=== PATIENT | female | born 1980 | race Caucasian/White ===

== ENCOUNTER → 2023-04-29 18:29 | Outpatient (CLI) | payer MEDICAID, SELFPAY ==
--- NOTE | 2023-04-29 18:30 | DI.RAD_ITS ---
Exam(s) XR SHOULDER LT COMPLETE 2+V EXAM: XR SHOULDER LT COMPLETE 2+V CLINICAL HISTORY: evaluate pathology. TECHNIQUE: 2D digital imaging was performed of the left shoulder. Four images were obtained. AP, G rashey, Y-view and axillary views were obtained. COMPARISON: No exams were available for comparison FINDINGS: BONES: No acute fracture is present. No bony destructive lesion is seen. JOINTS: No dislocation present. There are mild degenerative changes seen at the acromioclavicular santos nt. The glenohumeral joint is unremarkable. SOFT TISSUE: The visualized lungs are clear. IMPRESSION: Mild degenerative changes of the AC joint. DATA REPOSITORY: RADIATION DOSE DELIVERED:
--- NOTE | 2023-04-29 19:03 | DI.VRAD_ITS ---
PROCEDURE INFORMATION: Exam: XR Left Shoulder Exam date and time: 04/29/2023 6:46 PM Age: 43 years old Clinical indication: Injury or trauma; Fall; Blunt trauma (contusions or hematomas); Shoulder; Left; Injury details: Inj a while ago, eval pathology TECHNIQUE: Imaging protocol: Radiologic exam of the left shoulder. Views: 2 or more views. COMPARISON: No relevant prior studies available. FINDINGS: Bones/joints: Degenerative changes at the acromioclavicular joint. No acute fracture or dislocation Soft tissues: Normal. IMPRESSION: No acute findings. Dictated and Authenticated by: Rohit Puente MD. Ordering:JEFFERSON Busby MD
== END ==
PROVIDERS: Visit Provider Nurse Practitioner Family
DX: M19.012 Primary osteoarthritis, left shoulder (principal)
CPT/HCPCS: 73030

== ENCOUNTER → 2023-05-15 02:02 | Outpatient (CLI) | payer MEDICAID, SELFPAY ==
--- NOTE | 2023-05-15 09:45 | DI.MRI_ITS ---
Exam(s) MR UPPER JOINT LT WO EXAM: MR UPPER JOINT LT WO CLINICAL HISTORY: ? SLAP TEAR,slap lesion,s43.432a,m75.02,adhesive capsulitis TECHNIQUE: Multiplanar multisequence MRI of the shoulder was performed. COMPARISON: CR,XR XR SHOULDER LT COMPLETE 2+V from 04/29/2023 FINDINGS: MARROW:There is no evidence of fracture, Hill-Sachs deformity, nor bony Bankart lesion. There is a b enign-appearing bone lesion in the humeral head measuring 1.2 x 1.2 by 1.0 cm without surrounding bon e edema. Probable enchondroma. There are a few small degenerative subarticular cysts in the greater tuberosity subjacent to the infraspinatus tendon insertion site. GLENOHUMERAL JOINT: No joint effusion nor obvious loose intra-articular bodies. No chondral defects. No osteophytes. No degenerative subarticular cysts. No evidence of capsular tear. The inferior gle nohumeral ligament is intact. ROTATOR CUFF MECHANISM: AC JOINT/ACROMIUM: Mild degenerative changes in the AC joint.. There is no evidence of os acromiale. Supraspinatus: Intact. No evidence of tear nor muscle atrophy. Infraspinatus: Intact. No evidence of tear nor muscle atrophy. Teres Minor: Intact. No evidence of tear nor muscle atrophy. Subscapularis/anterior cuff: Intact. No abnormal signal at the level of the multipennate insertional fibers. No significant tear nor atrophy. BICEPS TENDON: Exhibits normal position within the intertubercular groove. No evidence of tear. No tenosynovitis. LABRUM: There is no abnormal signal in the superior labrum at the level of the biceps tendon insertio n. More posteriorly there is subtle thinning in the posterior aspect of the superior labrum which ma y indicate very subtle SLAP tear. The posterior labrum also appears intact. Anterior labrum appears intact. Inferior labrum appears i ntact. No evidence of paralabral cyst. QUADRILATERAL SPACE: No evidence of mass in the region of the axillary nerve and dorsal circumflex hu meral vessels. Visualized triceps muscle at this level appears unremarkable. IMPRESSION: 1. No evidence of rotator cuff tears nor obvious tendinitis of the rotator cuff mechanism. No muscle atrophy. 2. Biceps tendon appears unremarkable. No tear nor tenosynovitis. 3. Very subtle irregularity of the superior labrum posterior to the biceps insertion site. This may represent a very subtle SLAP tear. The remainder of the labrum appears intact. There is no evidence of paralabral cyst. 4. There is a benign-appearing lobulated nonexpansile bone lesion in the humeral head measuring 12 x 10 x 12 mm, most probably a benign enchondroma. There is no surrounding bone edema to suggest that this is an aggressive lesion. 5. There are no obvious degenerative changes in the glenohumeral joint and no joint effusion or loos e intra-articular bodies evident. DATA REPOSITORY:
== END ==
PROVIDERS: Visit Provider Student in an Organized Health Care Education/Training Program
DX: S43.432A Superior glenoid labrum lesion of left shoulder, initial encounter (principal); X58.XXXA Exposure to other specified factors, initial encounter
CPT/HCPCS: 73221

== ENCOUNTER 2023-05-28 06:07 | Day surgery (SDC) | payer MEDICAID, SELFPAY ==
[2023-05-28] VITALS (7 sets, daily range): BP systolic 116–147; BP diastolic 88–101; PULSE 64–78; RESP 15–19; TEMP 36.6–36.7; O2SAT 99–100; BMI 22.5
[2023-05-28] MEDS: Lactated Ringers 1,000 ML 30 ML IV (06:35)
--- NOTE | 2023-05-28 07:04 | W.ANESPRE ---
General Info Date of Service Date Performed: 05/28/23 Height: 5 ft 6 in Weight: 63.3 kg Body Mass Index (BMI): 22.5 Surgical Procedure: Operation Date: 05/28/23 07:40 Proposed Procedure Side Surgeon p Shoulder Manipulation Left Harvey Stevenson MD Meds Allergies and Home Medications Allergies Allergy/AdvReac Type Severity Reaction Status Date / Time aspirin AdvReac Intermediate Other (See Verified 05/28/23 06:19 Comment) Home Medication Medication Instructions Recorded norethindrone 1 mg-ethinyl 1 tab PO DAILY 05/06/23 estradiol 20 mcg (21)-iron 75 mg (7) tablet (04/25 (28)) Current Visit Medications: Current Medications Generic Name Dose Route Start Last Admin Trade Name Freq PRN Reason Stop Dose Admin Ringer's Solution 1,000 mls @ 30 mls/hr 05/28/23 06:00 05/28/23 06:35 IV 05/28/23 23:59 30 mls/hr INFUSION ELSIE Administration IV Miscellaneous Supplies 1 each 05/28/23 06:00 Iv Access IV 05/28/23 23:59 DIRECTED ELSIE Sodium Chloride 0 ml 05/28/23 06:00 Normal Saline Flush 10 Ml Syr IV 05/28/23 23:59 PRN PRN Sodium Chloride 0 ml 05/28/23 06:00 Normal Saline 10 Ml Vial IJ 05/28/23 23:59 DIRECTED PRN Sterile Water 0 ml 05/28/23 06:00 Water,Injection,Sterile 10 Ml Vial IJ 05/28/23 23:59 DIRECTED PRN PFSH Active Problems Active Problems: Problem Status Onset Code SLAP lesion of left shoulder S43.432A Adhesive capsulitis of left shoulder M75.02 Surgical History Surgical History [place] teeth removed Tobacco Smoking/Tobacco Use Status: Current every day Tobacco Type: cigarettes Alcohol Alcohol Intake: current Alcohol intake frequency: a few times a week Substance Use Substance use: Never Substance use type: does not use Vital Signs and Lab Results Vital Signs Most Recent Vital Signs in EMR: Most Recent Vital Signs Temp Pulse Resp BP Pulse Ox 36.7 C 74 16 116/88 99 05/28/23 06:21 05/28/23 06:21 05/28/23 06:21 05/28/23 06:21 05/28/23 06:21 Point of Care Results Point of Care Results: POC- Test(urine) Negative 05/28/23 06:37 Lab Results Blood Type / Crossmatch: No Data to Display Complete Blood Count: No Data to Display Complete Metabolic Panel: No Data to Display Liver Function Panel: No Data to Display Coagulation Panel: No Data to Display Cardiac Panel: No Data to Display Arterial Blood Gas: No Data to Display Venous Blood Gas: No Data to Display Pancreas Panel: No Data to Display Thyroid Panel: No Data to Display Infectious Disease: No Data to Display Blood Cultures: No Data to Display Toxicology Panel: No Data to Display Panel: No Data to Display Anesthesia Assessment and Plan Anesthesia History Personal History: No History of Anesthesia Complications Family History: No Family History of Anesthesia Complications Exercise Tolerance Exercise Tolerance: Metabolic Equivalents>4 Pertinent Negatives Pertinent Negatives: No Symptoms of GERD, No Major Cardiovascular Symptoms or Complaints and No Major Pulmonary Symptoms or Complaints Cardiac & Pulmonary Exam Cardiac Exam: Normal S1/S2 Heart Sounds Pulmonary Exam: Clear Bilateral Breath Sounds Implantable Cardiac Device Does patient have a Pacemaker or an ICD?: No Airway Exam Known Difficult Airway: No Mallampati Class: 2 Mouth Opening: Narrow (< 3cm) Thyromental Distance: Greater than 3 cm Neck Range of Motion: Full ROM Neck Circumference: Normal Teeth Condition: Removable Dentures/Plates Upper ASA Classification ASA Score: ASA 2 Emergency Case?: No NPO Status NPO Status: NPO Clears >2 hours, Solids >8 hours Status Status: Negative HCG Anesthesia Plan Resuscitation Status: Full Code Anesthesia Technique: General Anesthesia Airway Planned: Natural Airway Pain Management: Surgeon and patient request nerve block Monitors Used: Standard Monitors
--- NOTE | 2023-05-28 07:08 | W.PM.DSUDISC ---
Date of service: 05/28/23 Time of Service: 12:30 Discharge Plan Disposition Patient Disposition: Home Condition: Stable Discharge Details Attending Provider: Harvey Stevenson Primary Care Provider: Unknown,Unknown Home Meds and New Rx's Prescriptions: New naproxen 250 mg tablet 250 - 500 mg PO BID PRN (Reason: Moderate pain) Qty: 40 0RF oxycodone 5 mg tablet 5 - 10 mg PO Q4H PRN (Reason: Moderate to severe pain) Qty: 12 0RF Continued norethindrone-e.estradiol-iron [04/25 (28)] 1 mg-20 mcg (21)/75 mg (7) tablet 1 tab PO DAILY Discharge Instructions Additional Instructions: Surgery: Left shoulder manipulation under anesthesia Activity: Encourage increasing left shoulder range of motion. Perform daily stretching exercises. Resume physical therapy tomorrow. Prescriptions: Naproxen 250 mg take 1-2 every 12 hours with a meal as needed for moderate pain Oxycodone 5 mg take 1-2 every 4-6 hours as needed for severe pain You may use ydur-ikq-tqkckwi Tylenol (acetaminophen) as needed for mild pain. These pain medications may be taken all at once or in different combinations as needed. Also, recommend Colace (docusate) as a stool softener as surgery and pain medicine cause constipation. You may try kxxl-zco-wfrxxaw diphenhydramine (Benadryl) 25-50 mg nightly as a sleep aid Dressings: None Follow-up: 10-[address] Stevenson You may take off the leg compression stockings this evening at home. You may also leave them on a few days longer if you have a history of leg swelling or edema. Let us know right away if you develop any redness, drainage, fevers, chest pain, or trouble breathing. Do not drink alcohol or drive for at least 24 hours after anesthesia. Please call the office during business hours with any questions or concerns. Discharge Orders Discharge Orders: Discharge Order (Routine); Ordered 05/28/23 Ordered By: Ricky Ordoñez DS: Diagnosis Discharge Diagnosis (1) Adhesive capsulitis of left shoulder: Status: Acute
--- NOTE | 2023-05-28 07:19 | ROE_ITS ---
Date of service: 05/28/23 Time of Service: 07:30 Operative Note Operative Note DATE OF PROCEDURE: 05/28/23 PRE-OP DIAGNOSIS: Left shoulder stiffness PROCEDURE: Left shoulder manipulation under anesthesia, CPT #34020 SURGEON: Harvey Stevenson ANESTHESIA TYPE: General LMA/ETT and Primary Nerve Block Refer to Anesthesia Record ESTIMATED BLOOD LOSS: 0 COMPLICATIONS: None Patient was transported to: same day Patient's condition: stable Indications: Please see complete medical record for details. Findings: Nearly full range of motion once relaxed under anesthesia, minor releases at terminal points of motion. No instability or mechanical symptoms. Procedure Description: The patient was examined prior to nerve block anesthesia, demonstrated known limitation to about 90 degrees forward elevation, unable to encourage greater forward elevation with active assistance or passive motion. External rotation remained around the last visit about 45-50 degrees. In the operating room, general anesthesia was induced. The patient was positioned supine on the stretcher. Preoperative antibiotics were omitted. The correct patient, procedure, and side of the procedure were all verified prior to beginning. The Left shoulder was examined with range of motion already significantly improved to 145 degrees forward elevation, 60 external rotation, and 50 degrees internal rotation. These already good range of motion endpoints had a soft field. Gentle steady pressure using a short lever arm was used to readily achieve full symmetrical range of motion with minor releases at terminal forward elevation, external rotation, abduction external rotation, internal rotation, and cross body adduction. No significant capsular releases were appreciated. Range of motion was then tested and full and symmetrical past 145 degrees forward elevation, 75 degrees external rotation, and 65 degrees internal rot ation. All endpoints were gently exaggerated. The shoulder joint remained stable without mechanical sensations. While the patient remained under anesthesia, all directions were stretched and repeated numerous times. The patient awoke from anesthesia without complication and was transferred to the recovery room in a stable condition.
--- NOTE | 2023-05-28 07:49 | W.ANESNERVE ---
Nerve Block Single Injection Procedure Date and Time Date Performed: 05/28/23 Procedure Start: 07:15 Location Where Procedure Performed Procedure Location: Day Surgery Unit Reason Performed: Postoperative Analgesia Requesting Provider: Harvey Stevenson Timeout Performed Timeout Performed: Yes Monitoring Used ECG, Blood Pressure, SpO2 and See EMR for corresponding vital signs Sterility Sterility: Hand Hygiene, Surgical Cap, Surgical Mask, Sterile Gloves and Chlorhexidine Sedation Given During Procedure Sedation Given (Indicate Dose Given): Versed IV Dose:: 2mg Patient Mental Status Patient Mental Status: Awake Nerve Block 1st Nerve Block: Laterality: Left Block Type: Supraclavicular Ultrasound Image Saved?: Yes Needle / Catheter Used: 100mm SonoPlex II Local Anesthetic Bolus (Indicate Dose Given): Lidocaine used for local infiltration of skin, Injected in 3-5ml increments after negative blood aspiration, Bupivacaine 0.5% Dose:: 10ml and Exparel Dose:: 10ml Additives (Indicate Dose Given): None Ultrasound: Sterile probe cover and gel used Nerve Stimulator: Supplement to Ultrasound use and No twitch or parasthesia noted < 0.5 mA Paresthesia: None Procedure Tolerated: No Complications and Patient tolerated well Procedure Outcome: Successful Performed By: Johnnie Schneider
--- NOTE | 2023-05-28 07:57 | W.ANESPOSTOP ---
Postoperative Evaluation Date, Time and Location Date Performed: 05/28/23 Time Performed: 07:57 Patient Location: Day Surgery Unit Vital Signs Most Recent Imported Vital Signs: Most Recent Vital Signs Temp Pulse Resp BP Pulse Ox 36.7 C 78 16 126/92 H 99 05/28/23 07:45 05/28/23 07:45 05/28/23 07:45 05/28/23 07:45 05/28/23 07:45 Pain Score Most Recent Pain Score: Most Recent Pain Score Pain Level 0 05/28/23 07:45 Assessment Mental Status: Awake (Alert & Oriented to Patient Baseline) Airway and Respiratory Function: Patent airway with normal (patient baseline) respiratory exam Cardiovascular Function: Hemodynamically Stable Hydration Status: Adequately Hydrated Nausea & Vomiting: No Nausea or Vomiting Pain: Pt. Denies Any Pain Peripheral Nerve Block: Regional nerve block not resolved at time of post operative discharge
== END 2023-05-28 08:29 | disposition home or self-care (01) ==
PROVIDERS: Visit Provider Student in an Organized Health Care Education/Training Program
PROC: (CPT 23700; principal; 2023-05-28 07:30)
DX: M75.02 Adhesive capsulitis of left shoulder (principal)
CPT/HCPCS: 23700; 76942; 81025; C9290; J0665; J2001; J2250; J2405; J2704

== ENCOUNTER 2023-08-28 08:43 | Day surgery (SDC) | payer MEDICAID, SELFPAY ==
[2023-08-28] VITALS (12 sets, daily range): BP systolic 94–163; BP diastolic 57–98; PULSE 60–80; RESP 13–19; TEMP 36.4–36.8; O2SAT 97–100; BMI 23.8
--- NOTE | 2023-08-28 07:12 | W.PM.DSUDISC ---
Date of service: 08/28/23 Time of Service: 14:00 Discharge Plan Disposition Patient Disposition: Home Condition: Stable Discharge Details Attending Provider: Harvey Stevenson Primary Care Provider: None,None Home Meds and New Rx's Prescriptions: New naproxen 250 mg tablet 250 - 500 mg PO BID PRNQty: 40 0RF Rx Instructions: take with a meal Continued norethindrone-e.estradiol-iron [04/25 (28)] 1 mg-20 mcg (21)/75 mg (7) tablet 1 tab PO DAILY Discharge Instructions Additional Instructions: Surgery: Left shoulder arthroscopy with extensive debridement, subacromial decompression, and mini open biceps tenodesis. Activity: You should gradually increase range of motion motion and use of your shoulder. You may use your shoulder for all regular activities while protecting biceps repair. Avoid any weighted elbow flexion or resisted supination for 6-8 weeks. No heavy lifting, reaching overhead, or lifting away from body for approximately 2-3 months. You may use the sling whenever you are out of the house for a few weeks. At home it is best to remove the sling and rest the arm on a pillow at your side or support the operative side with your other hand. A physical therapy prescription will be sent electronically to start in about 2-3 weeks. Prescriptions: Naproxen 250 mg take 1-2 every 12 hours with a meal as needed for moderate pain You may use zxtz-tej-ikcveor Tylenol (acetaminophen) as needed for mild pain. These pain medications may be taken all at once or in different combinations as needed. Also, recommend Colace (docusate) as a stool softener as surgery and pain medicine cause constipation. You may try cyrk-bva-ehlfajh diphenhydramine (Benadryl) 25-50 mg nightly as a sleep aid Dressings: Remove shoulder bandage after 3 days. Leave the sticky Steri-Strips in place until they fall off or remove them after you shower. Cover the incisions with Band-Aids or leave them open to air. The biceps bandage (inside upper arm) is glued on separately. You may leave this one on a few days longer if it is difficult to remove. There is also glue underneath this bandage that can be left in place until it peels off. You may shower after 5 days. Follow-up: 10-[address] Stevenson You may take off the leg compression stockings this evening at home. You may also leave them on a few days longer if you have a history of leg swelling or edema. Let us know right away if you develop any redness, drainage, fevers, chest pain, or trouble breathing. Do not drink alcohol or drive for at least 24 hours after anesthesia. Please call the office during business hours with any questions or concerns. Stand Alone Forms: Anesthesia Discharge InstPete Rome.Nerve Block Instructions, Enzo Pelaez (DSU) Discharge Orders Discharge Orders: Discharge Order (Routine); Ordered 08/28/23 Ordered By: Alexandra Vargas Discharge Data Discharge Date/Time-TO BE ENTERED AT DEPARTURE: 08/28/23 14:21 DS: Diagnosis Discharge Diagnosis (1) Tendinitis of long head of biceps brachii of left shoulder: Status: Acute (2) Bursitis of left shoulder: Status: Acute
--- NOTE | 2023-08-28 07:33 | W.PM.OP ---
Date of service: 08/28/23 Time of Service: 11:00 Operative Note Operative Note DATE OF PROCEDURE: 08/28/23 PRE-OP DIAGNOSIS: Left: 1. SLAP tear 2. Adhesive capsulitis 3. Bursitis POST-OP DIAGNOSIS: same Left: 1. Biceps tendinopathy 2. Bursitis PROCEDURE: Left: 1. Open biceps tenodesis, CPT# 80173. This involved reattaching the long head of the biceps tendon to the proximal humerus in the sub-pectoral area of the bicipital groove at the correct tension. 2. Arthroscopic extensive debridement, CPT# 71716. This involved using arthroscopic hand instruments, power instruments, and radiofrequency instruments to release the long head of the biceps tendon and debride areas of mild anterior labral fraying, rotator interval synovitis, and release anterior capsule/[facility] L working within the glenohumeral joint. 3. Arthroscopy subacromial decompression with partial acromioplasty, CPT# 50044. This involved using arthroscopic power instruments and a radiofrequency wand to complete a bursectomy and smooth the undersurface of the acromion. The transportation assistant was medically required in order to help assist in techniques above, which require positioning the arm, holding the arthroscope, and manipulating multiple instruments and sutures at the same time. This cannot be done without the help of an experienced transportation assistant. SURGEON: Harvey Stevenson CARDIOLOGY TECHNICIAN: Alexandra Vargas ANESTHESIA TYPE: Local By Surgeon, General LMA/ETT and Primary Nerve Block Refer to Anesthesia Record ESTIMATED BLOOD LOSS: 5 PATHOLOGY: none sent COMPLICATIONS: None Patient was transported to: PACU Patient's condition: stable Implants: Arthrex: Unicortical Proximal Biceps Tenodesis Button Indications: The patient was diagnosed with the above conditions and appropriately indicated for surgical intervention. Please see complete medical record for details. Findings: Exam under anesthesia: Full range of motion without any mechanical symptoms or instability Glenohumeral joint: Moderate biceps injection, structurally intact, no visible SLAP tear, mild rotator interval synovitis, small bulbous area subscapularis without any apparent injury or tearing. Moderately thickened [facility] L. Mild central glenoid chondromalacia. Intact rotator cuff. Subacromial space: Moderate bursitis, minimal bursal rotator cuff fraying, no tearing. No significant acromial bone spur or impingement. Procedure Description: In the operating room, general anesthesia was induced. Bilateral shoulders were examined. The patient was positioned in the beachchair position. All bony prominences were well-padded. Preoperative antibiotics were administered. The shoulder was prepped and draped in the usual sterile fashion. The correct patient, procedure, and side of the procedure were all verified prior to incision. Starting through the posterior portal a standard complete diagnostic arthroscopy was performed of the glenohumeral joint including inspection of the long head of the biceps, anterior and superior labrum, subscapularis tendon, supraspinatus and infraspinatus tendons, and axillary recess. The glenoid and humeral head cartilage as well as the posterior labrum were inspected from an anterior viewing portal. Significant findings and interventions noted above. Of note, the [facility] L was released with arthroscopic scissors given the history of frozen shoulder/stiffness and some thickening noted. The anterior labrum was lightly debrided of fraying as well as the rotator interval of synovitis. The biceps tendon was released from the superior labrum using arthroscopic scissors. Starting through the posterior portal, the arthroscope was directed into the subacromial space. A lateral 50 yard line lateral portal was created. A combination of power instruments and a radiofrequency ablator were used to debride bursitis anteriorly, posteriorly, and laterally as well as expose and smooth bone spurring on the undersurface of the acromion. The coracoacromial ligament was partially released. The bursectomy was completed viewing laterally and working from posteriorly and the rotator cuff was thoroughly inspected with findings noted above. The shoulder was drained of arthroscopic fluid. 10 cc of 0.25% bupivacaine with epinephrine was infiltrated about a 3 cm longitudinal incision at the inferior margin of the pectoralis major localized over the long head of the biceps tendon. Blunt and sharp dissection were used to expose the tendon in the bicipital groove. The tendon was brought out of the wound and kept off the skin on top of a blue towel. The correct location for sub-pectoral fixation was localized, prepped with a rasp, and then drilled with a 3.2 mm drill pin in a unicortical fashion. Using a fiber loop suture the tendon was prepped from the musculotendinous junction a few centimeters proximal. The excess tendon was amputated. The free suture ends were then passed through the unicortical button implant. The drill pin was removed and the implant was placed into the humeral intramedullary canal. The button was flipped and the sutures were tensioned bringing the tendon down to bone. Tension and fixation were then tested and found to be appropriate. The free ends of the suture were were tied compressing tendon to bone. The wound was copiously irrigated with normal saline. Subcutaneous tissue was closed using 3-0 Monocryl in a buried interrupted fashion. Skin was closed using 3-0 Monocryl in a buried subcuticular running fashion. Skin glue was applied over the incision. Mastisol was applied about the incision. The incision was covered with Telfa, gauze, and covered with a Tegaderm dressing. All portal sites were copiously irrigated. These incisions were closed using 3-0 Monocryl in a buried fashion and then covered with Mastisol, Steri-Strips, Xeroform, dry gauze, and ABDs. The dressings were covered and secured with Medipore tape. The operative extremity was placed into a sling for immobilization. The patient awoke from anesthesia without complication and was transferred to the recovery room in a stable condition.
--- NOTE | 2023-08-28 07:52 | ANES.PREOP_ITS ---
General Info Date of Service Date Performed: 08/28/23 Height: 5 ft 6 in Weight: 67.132 kg Body Mass Index (BMI): 23.8 Surgical Procedure: Operation Date: 08/28/23 10:40 Proposed Procedure Side Surgeon p Shoulder Arthroscopy w/Extensive Debridement, Open VS Arthroscopic Biceps Tenodesis, Subacromial Decompression Left Harvey Stevenson MD Pre-Op Diagnosis Post-Op Diagnosis (1) SLAP lesion of left shoulder (2) Adhesive capsulitis of left shoulder Meds Allergies and Home Medications Allergies Allergy/AdvReac Type Severity Reaction Status Date / Time aspirin AdvReac Intermediate Other (See Verified 08/28/23 08:51 Comment) Home Medication Medication Instructions Recorded norethindrone 1 mg-ethinyl 1 tab PO DAILY 05/06/23 estradiol 20 mcg (21)-iron 75 mg (7) tablet (04/25 (28)) Current Visit Medications: Current Medications Generic Name Dose Route Start Last Admin Trade Name Freq PRN Reason Stop Dose Admin Ringer's Solution 1,000 mls @ 30 mls/hr 08/28/23 06:00 IV 08/28/23 23:59 INFUSION ELSIE Cefazolin Sodium/Dextrose 2 gm in 50 mls @ 100 mls/hr 08/28/23 06:00 Ancef Duplex IVPB 08/28/23 23:59 PREOP ELSIE Tranexamic Acid/Sodium Chloride 1,000 mg in 100 mls @ 600 mls/hr 08/28/23 06:00 IVPB 08/28/23 23:59 PREOP ELSIE IV Miscellaneous Supplies 1 each 08/28/23 06:00 Iv Access IV 08/28/23 23:59 DIRECTED ELSIE Oxycodone HCl 0 mg 08/28/23 07:12 Oxycodone 5 Mg Tab PO 09/27/23 07:11 Q3H PRN PRN Pain Sodium Chloride 0 ml 08/28/23 06:00 Normal Saline Flush 10 Ml Syr IV 08/28/23 23:59 PRN PRN Sodium Chloride 0 ml 08/28/23 06:00 Normal Saline 10 Ml Vial IJ 08/28/23 23:59 DIRECTED PRN Sterile Water 0 ml 08/28/23 06:00 Water,Injection,Sterile 10 Ml Vial IJ 08/28/23 23:59 DIRECTED PRN PFSH Active Problems Active Problems: Problem Status Onset Code SLAP lesion of left shoulder S43.432A Adhesive capsulitis of left shoulder M75.02 Surgical History Surgical History [place] teeth removed Tobacco Smoking/Tobacco Use Status: Current every day Tobacco Type: cigarettes Alcohol Alcohol Intake: current Alcohol intake frequency: a few times a week Substance Use Substance use: Never Substance use type: does not use Vital Signs and Lab Results Vital Signs Most Recent Vital Signs in EMR: Temp Pulse Resp BP Pulse Ox 36.8 C 80 16 137/89 99 08/28/23 08:56 08/28/23 08:56 08/28/23 08:56 08/28/23 08:56 08/28/23 08:56 Lab Results Blood Type / Crossmatch: No Data to Display Complete Blood Count: No Data to Display Complete Metabolic Panel: No Data to Display Liver Function Panel: No Data to Display Coagulation Panel: No Data to Display Cardiac Panel: No Data to Display Arterial Blood Gas: No Data to Display Venous Blood Gas: No Data to Display Pancreas Panel: No Data to Display Thyroid Panel: No Data to Display Infectious Disease: No Data to Display Blood Cultures: No Data to Display Toxicology Panel: No Data to Display Panel: No Data to Display Anesthesia Assessment and Plan Anesthesia History Personal History: No History of Anesthesia Complications Family History: No Family History of Anesthesia Complications Exercise Tolerance Exercise Tolerance: Metabolic Equivalents>4 Cardiac & Pulmonary Exam Cardiac Exam: Normal S1/S2 Heart Sounds Pulmonary Exam: Clear Bilateral Breath Sounds Implantable Cardiac Device Does patient have a Pacemaker or an ICD?: No Airway Exam Known Difficult Airway: No Mallampati Class: 2 Mouth Opening: Narrow (< 3cm) Thyromental Distance: Greater than 3 cm Neck Range of Motion: Full ROM Neck Circumference: Normal Teeth Condition: Removable Dentures/Plates Upper (very secure would like to leave it in. Understands the risk of breaking. ) ASA Classification ASA Score: ASA 2 Emergency Case?: No NPO Status NPO Status: NPO Clears >2 hours, Solids >8 hours Status Status: Negative HCG Anesthesia Plan Resuscitation Status: Full Code Anesthesia Technique: General Anesthesia Airway Planned: Endotracheal Tube Pain Management: Surgeon and patient request nerve block Monitors Used: Standard Monitors Preoperative Comments:: 43 yo female for shoulder scope. Sig PMHx: smoker, occ Etoh. Previous Anes: - shoulder manipulation, prop, zofran, no issues. ISB, midaz 2, 10 mL 0.5% bupiv, 10 mL exparel - lasted for ~48.
[2023-08-28] MEDS: Lactated Ringers 1,000 ML 30 ML IV (09:18)
--- NOTE | 2023-08-28 10:11 | W.ANESNERVE ---
Nerve Block Single Injection Procedure Date and Time Date Performed: 08/28/23 Procedure Start: 10:19 Location Where Procedure Performed Procedure Location: Day Surgery Unit Reason Performed: Postoperative Analgesia Requesting Provider: Harvey Stevenson Timeout Performed Timeout Performed: Yes Monitoring Used ECG, Blood Pressure and SpO2 Sterility Sterility: Hand Hygiene, Surgical Cap, Surgical Mask, Sterile Gloves and Chlorhexidine Sedation Given During Procedure Sedation Given (Indicate Dose Given): Versed IV Dose:: 2 mg Patient Mental Status Patient Mental Status: Sedate with meaningful communication Nerve Block 1st Nerve Block: Laterality: Left Block Type: Interscalene Ultrasound Image Saved?: Yes Needle / Catheter Used: 80mm SonoPlex II Local Anesthetic Bolus (Indicate Dose Given): Lidocaine used for local infiltration of skin, Bupivacaine 0.5% Dose:: 10 mL and Exparel Dose:: 10 mL Additives (Indicate Dose Given): None Ultrasound: Sterile probe cover and gel used Nerve Stimulator: Supplement to Ultrasound use and No twitch or parasthesia noted < 0.5 mA Paresthesia: None Procedure Tolerated: No Complications Procedure Outcome: Successful Performed By: Arturo Frey
[2023-08-28] MEDS: ceFAZolin 2 GM/50 ML BAG IVPB (10:45)
[2023-08-28] MEDS: TRANEXAMIC ACID/SOD. CHL. 1,000 MG/100 ML BAG 600 MG IVPB (10:51)
[2023-08-28] MEDS: Bupivacaine 0.25% Pres-Free W/EPI 30 ML VIAL (11:30)
[2023-08-28] MEDS: EPINEPHrine 10 MG/10 ML ML (11:30)
--- NOTE | 2023-08-28 12:22 | W.ANESPOSTOP ---
Postoperative Evaluation Date, Time and Location Date Performed: 08/28/23 Time Performed: 12:22 Patient Location: PACU Vital Signs Most Recent Imported Vital Signs: Most Recent Vital Signs Temp Pulse Resp BP Pulse Ox 36.8 C 69 13 135/90 100 08/28/23 10:22 08/28/23 10:22 08/28/23 10:22 08/28/23 10:22 08/28/23 10:22 Pain Score Most Recent Pain Score: Most Recent Pain Score Pain Level 0 08/28/23 10:22 Assessment Mental Status: Awake (Alert & Oriented to Patient Baseline) Airway and Respiratory Function: Patent airway with normal (patient baseline) respiratory exam Cardiovascular Function: Hemodynamically Stable Hydration Status: Adequately Hydrated Nausea & Vomiting: No Nausea or Vomiting Pain: Pain is tolerable per patient Peripheral Nerve Block: Regional nerve block not resolved at time of post operative discharge
== END 2023-08-28 14:21 | disposition home or self-care (01) ==
LOC: SUR 08:43
PROVIDERS: Visit Provider Student in an Organized Health Care Education/Training Program
PROC: (CPT 29805; principal; 2023-08-28 10:30)
DX: F17.210 Nicotine dependence, cigarettes, uncomplicated; M75.52 Bursitis of left shoulder; M75.02 Adhesive capsulitis of left shoulder; S43.432A Superior glenoid labrum lesion of left shoulder, initial encounter; X58.XXXA Exposure to other specified factors, initial encounter
CPT/HCPCS: 23430; 29823; 29826; 76942; 81025; C9290; J0131; J0665; J0690; J1100; J1805; J1885; J2001; J2250; J2405; J2704

== ENCOUNTER 2023-12-18 10:56 | Emergency (ER) | payer MEDICAID, SELFPAY ==
[2023-12-18 11:06] VITALS: BP 134/85; PULSE 94; RESP 12; TEMP 36.7; O2SAT 97
[2023-12-18 11:19] VITALS: BP 130/72; PULSE 62; RESP 20; TEMP 36.8; O2SAT 100
--- NOTE | 2023-12-18 11:19 | W.ED.GENAD ---
Discharge Plan Disposition Patient Disposition: Home Condition: Stable Discharge Details Clinical Impression: Dog bite of right thumb with infection, Cellulitis and abscess of hand Primary Care Provider: Unknown,Unknown ED Provider: Sherrill Epps Home Meds and New Rx's Prescriptions: No Action norethindrone-e.estradiol-iron [04/25 (28)] 1 mg-20 mcg (21)/75 mg (7) tablet 1 tab PO DAILY amoxicillin-pot clavulanate 875-125 mg tablet 1 tab PO Q12H Qty: 20 0RF Discharge Instructions Instructions: Animal Bites ED Additional Instructions: He was seen at the emergency department today for evaluation of a dog bite, and you were found to be developing cellulitis of the right hand. Reassuringly, it is improving with the antibiotics that you are prescribed, and you need to continue to take all these antibiotics until they are gone, even if you start to feel better. You should follow-up with your primary care provider and we have placed a referral for you to establish with care. If you notice that the redness and swelling is worsening rather than improving, if you develop a fever, chills, or any other concerning symptoms you need to return to care as you may require additional antibiotics. Please continue to use good wound care and wash with soap and water, avoid reexposure to other pathogen's, and thank you for allowing us to be part of your care. HPI General Date/Time Provider Initiated Documentation: 12/18/23 11:02. Limitations to Documentation: no limitations. Information obtained by: patient and old records reviewed. HPI Narrative: HPI: This is a 43-year-old female patient without significant past medical history presenting for evaluation of infection after a dog bite. The patient was bitten by her own dog on Thursday, states that this was an event she due to the dog becoming spooked, dog is known to be vaccinated and has been monitored and has not developed any concerning behavioral changes. On Thursday she noted redness and swelling of her thumb and hand, was seen at urgent care where she received a dose of intramuscular ceftriaxone and was started on a course of Augmentin, which she has been taking for the last 2 days every 12 hours. Her tetanus was boosted on that date, and she reports that last night her redness and swelling of her dorsal aspect of her hand was much worse. Today, she notes that the swelling and redness has improved, but wanted to be evaluated to ensure that there was nothing concerning going on. The patient has not had fevers or chills, has been eating and drinking normally, has not noted any limitation in range of motion of the affected hand, and has not noted any drainage from the puncture wound on her right thumb Exam: Gen: Awake and alert, in no apparent distress HEENT: Non-icteric sclera Neck: Supple Lungs: No apparent respiratory distress, normal respiratory effort. CV: Appears well perfused Abdomen: Non-distended MSK: Moves 4 extremities without apparent limitation in ROM. The patient has a puncture wound to the lateral aspect of her right thumb, with no purulent drainage. Small redness to the skin overlying the proximal phalanx, and redness, swelling, and induration of the dorsal aspect of the right hand extending just proximal to the right wrist, with no overlying skin breaks or evidence of fluctuance. Skin: Visualized skin without rashes, cyanosis. Neuro: Normal Gait, no obvious focal deficits or facial asymmetry. Speaks in full, clear sentences. Psych: Appropriate for situation. MDM: This is a 43-year-old female patient presenting for evaluation of infection after a dog bite. My differential includes but is not limited to cellulitis, zoonotic infection, the patient is reassuringly without pain with passive range of motion just significant increase my concern for deep space infection such as infected joint or osteomyelitis. She has no systemic symptoms such as tachycardia, fever to suggest bacteremia or sepsis. I do not palpate any fluctuance to suggest abscess, and the patient herself has no purulent aspect to her cellulitis no personal history of MRSA. For this reason, and given the patient is report of improving symptoms I feel that she is on an appropriate antibiotic strategy, as a prescription for 10 days of Augmentin treatment and I recommended that she continue it to completion. Tylenol and ibuprofen was recommended for management of pain, and I did provide the patient with a referral to establish with primary care in our system for reevaluation. At this time, the patient has had a full medical evaluation and is safe for discharge to home. They are hemodynamically stable, ambulatory, and tolerating PO. They are understanding of the follow-up plan and return precautions. They left our facility without incident. Sherrill Epps MD Related Data Home Medications ?Medication ?Instructions ?Recorded ?Confirmed norethindrone 1 mg-ethinyl 1 tab PO DAILY 05/06/23 12/18/23 estradiol 20 mcg (21)-iron 75 mg (7) tablet ([place] FE 04/25 (28)) amoxicillin 875 mg-potassium 1 tab PO Q12H #20 tabs 12/16/23 12/18/23 clavulanate 125 mg tablet Previous Rx's ?Medication ?Instructions ?Recorded amoxicillin 875 mg-potassium 1 tab PO Q12H #20 tabs 12/16/23 clavulanate 125 mg tablet Allergies Allergy/AdvReac Type Severity Reaction Status Date / Time aspirin AdvReac Intermediate nose bleeds Verified 12/18/23 11:09 General Stated Complaint: AnimalBite DEMETRA: 4 Course Vital Signs Vital signs: Vital Signs Temperature 36.7 C 12/18/23 11:06 Pulse 94 H 12/18/23 11:06 Respiratory Rate 12 12/18/23 11:06 Blood Pressure 134/85 12/18/23 11:06 Pulse Oximetry 97 12/18/23 11:06 Temperature 36.7 C 12/18/23 11:06 Temperature Source Oral 12/18/23 11:06 Pulse 94 H 12/18/23 11:06 Respiratory Rate 12 12/18/23 11:06 Blood Pressure 134/85 12/18/23 11:06 Blood Pressure Position Sitting 12/18/23 11:06 Pulse Oximetry 97 12/18/23 11:06 Oxygen Delivery Method Room Air 12/18/23 11:06 Oxygen Flow Rate 0 12/18/23 11:06 Pain Level 4 12/18/23 11:06 Medical Decision Making Quality:SDOH Health Related Social Needs: No Data to Display PFSH All Active Problems (Updated 12/18/23 @ 11:21 by Sherrill Epps MD) Cellulitis and abscess of hand (Acute) Dog bite of right thumb with infection (Acute) Bursitis of left shoulder (Acute) Tendinitis of long head of biceps brachii of left shoulder (Acute) Medical History Adhesive capsulitis of left shoulder Surgical History [place] teeth removed Social History Smoking/Tobacco Use Status: Current every day Tobacco Type: cigarettes Smoking risk assessment performed?: Yes Alcohol Intake: current Alcohol Intake frequency: a few times a week Drug use: Never Substance use type: does not use Housing: house Do you feel safe at home: Yes Do you feel safe in your relationship?: Yes
== END 2023-12-18 11:54 | disposition home or self-care (01) ==
PROVIDERS: Emergency Provider Emergency Medicine
DX: S61.031A Puncture wound without foreign body of right thumb without damage to nail, initial encounter (principal); L03.011 Cellulitis of right finger; W54.0XXA Bitten by dog, initial encounter; Y93.89 Activity, other specified; Y92.018 Other place in single-family (private) house as the place of occurrence of the external cause; F17.210 Nicotine dependence, cigarettes, uncomplicated
CPT/HCPCS: 99283